=== PATIENT | female | born 1950 | race Caucasian/White ===

== ENCOUNTER 2024-06-12 16:33 | Emergency (ER) | payer BC, SELFPAY ==
[2024-06-12 16:40] VITALS: BP 204/136
[2024-06-12 18:18] VITALS: BMI 24.8
--- NOTE | 2024-06-12 18:23 | ED.SKININJ ---
HPI-Injury
General
Chief Complaint: Bite
Source: patient
Time Seen by Provider: 06/12/24 18:06
History of Present Illness-Injury
Initial Injury comments:
73yo right hand dominant female presenting with her significant other for evaluation after an animal bite that was sustained at 3pm today. Patient was gardening outside and was trimming bushes when she felt a bite on her right ring finger. She
pulled her hand away and saw a ji in the bushes. Patient cleaned the area prior to arrival. She denies any pain to the digit or paresthesias. Unknown last Tdap.
Phy Exam
General Physical Exam
General Presentation: well appearing and no apparent distress
General age: appears stated age
General Skin: warm and dry
General Habitus: normal
General Mental: alert
General Hydration: appears well hydrated
ENT Exam
ENT Exam: normocephalic
Pulmonary Exam
Pulmonary Exam: no respiratory distress
[place] Coma Scale
Eye Opening: Spontaneous
Verbal Response: Oriented
Motor Response: Obeys Commands
GCS Total Score: 15
Musculoskeletal Exam
Musculoskeletal Exam: other (Small wound noted to proximal dorsal R ring finger. No active bleeding. Does not require suture repair. MCP, PIP, and DIP joints intact. No bony tenderness. Sensation intact. 2+ radial pulse. )
Skin Exam
Skin Exam: warm/dry
Psychiatric Exam
Psychiatric Exam: normal mood/affect
Course
Orders/Labs/Results
Orders:
Orders
06/12/24 18:22
Amoxicillin 875 mg/Clav 125 mg [Augmentin 875 mg/125 mg] 1 tablet PO NOW STA
Tetanus/Diphth/Acelpertussis [Adacel] 0.5 ml IM .ONCE ONE
06/12/24 18:38
Rabies Immune Globulin/Pf [HyperRAB] 1,452 unit IM NOW STA
06/12/24 18:45
Rabies Vaccine (Pcec)/Pf [Rabavert Rabies Vacc W-Diluent] 2.5 unit IM .ONCE ONE
Vital Signs
Initial and Last Documented VS:
Initial Vital Signs
Temp Pulse Resp BP Pulse Ox
98.5 F 89 18 204/136 98
06/12/24 16:40 06/12/24 16:40 06/12/24 16:40 06/12/24 16:40 06/12/24 16:40
Last Documented Vital Signs
Temp Pulse Resp BP Pulse Ox
98.5 F 89 18 204/136 98
06/12/24 16:40 06/12/24 16:40 06/12/24 16:40 06/12/24 16:40 06/12/24 16:40
MDM/Problems Addressed
Differential Diagnosis Includes:
73yoF here after she was bitten by a ji in the R ring finger this afternoon. Small wound noted on exam that does not require suture repair. ROM of digit intact and there is no bony tenderness. Digit is neurovascularly intact.
Tdap updated and she was initiated on the rabies vaccine series. She received both the rabies vaccine and the immunoglobulin. She was started on Augmentin for infection prophylaxis. Advised patient to call the infusion center to schedule the
remainder of her rabies vaccinations. Advised return to the ED with any signs of infection. She was discharged in stable condition.
*Critical Care Note
Total Time (30-74mins, 75-104mins- exclusive of procedures): Not Applicable
ED Attending Note
-
Portions of this chart may have been created with voice recognition software.� Occasional wrong word or��sound alike� substitutions may have occurred due to the inherent limitations of voice recognition software.
Discharge Plan
Departure
Patient Disposition: Home (Routine Discharge)
Date of Disposition: 06/12/24
Time of Disposition: 18:24
Patient with high blood pressure during this ER visit?: Yes
Discharge Problem:
Open wound of right ring finger due to animal bite
Instructions: Animal Bites (DC), Rabies Vaccine CDC Vaccine Information Statement (VIS)
Prescriptions:
New
amoxicillin-pot clavulanate 875-125 mg tablet
1 tab PO BID Qty: 13 0RF
rabies vacc,human diploid (PF) 2.5 unit recon soln
2.5 unit IM ONCE Qty: 3 0RF
Rx Instructions:
Administer vaccine on 06/15/24, 06/19/24, and 06/26/24.
Stand Alone Forms: Rabies Vaccine Post Exp Dosing
Activity Restrictions/Additional Instructions:
Take antibiotics as prescribed. Call the infusion center on Saturday to schedule your remainder rabies vaccinations.
Return to the ER with any signs of infection.
Interventions
Interventions:
*Risk Screen - Suicide Last Done: 06/12/24 18:18
*General Assessment Last Done: 06/12/24 18:18
*Neglect/Abuse Screening Last Done: 06/12/24 18:18
ED- Fall Risk Assessment Last Done: 06/12/24 18:18
*ED COVID-19 Vaccine History Last Done: 06/12/24 18:18
*Nursing Disposition Last Done: 06/12/24 19:06
ED-Skin Assessment Last Done: 06/12/24 18:18
Discharge Date and Time
Discharge Date/Time: 06/12/24 19:09
Print Language: BRITISH
[2024-06-12] MEDS: ADACEL 0.5 ML IM (18:48)
[2024-06-12] MEDS: AUGMENTIN 875 MG/125 MG 1 TABLET PO (18:48)
[2024-06-12] MEDS: RABAVERT RABIES VACC W-DILUENT 2.5 UNIT IM (18:52)
[2024-06-12] MEDS: HyperRAB 1452 UNIT IM (18:56)
== END 2024-06-12 19:09 | disposition home or self-care (01) ==
LOC: EMR 16:33
PROVIDERS: EMERGENCY PHYSICIAN Emergency Medicine; FAMILY PHYSICIAN Internal Medicine
DX: S61.204A Unspecified open wound of right ring finger without damage to nail, initial encounter (principal); W64.XXXA Exposure to other animate mechanical forces, initial encounter; Z23 Encounter for immunization; Z29.14 Encounter for prophylactic rabies immune globulin
CPT/HCPCS: 99282; 90471; 90472; 96372; 90375; 90675; 90715

== ENCOUNTER 2024-06-26 14:32 | Outpatient (RCR) | payer BC, SELFPAY ==
[2024-06-15 14:48] VITALS: BP 167/87
[2024-06-15] MEDS: RABAVERT RABIES VACC W-DILUENT 2.5 UNIT IM (15:06)
[2024-06-19 14:48] VITALS: BP 160/73
[2024-06-19] MEDS: RABAVERT RABIES VACC W-DILUENT 2.5 UNIT IM (14:55)
[2024-06-26 14:43] VITALS: BP 155/66
[2024-06-26] MEDS: RABAVERT RABIES VACC W-DILUENT 2.5 UNIT IM (14:53)
== END 2024-06-29 08:40 | disposition home or self-care (01) ==
LOC: OID 14:32
PROVIDERS: ATTENDING PHYSICIAN Emergency Medicine; FAMILY PHYSICIAN Internal Medicine
DX: Z20.3 Contact with and (suspected) exposure to rabies (principal); Z23 Encounter for immunization
CPT/HCPCS: 90471; 90675